=== PATIENT | female | born 1970 | race Caucasian/White ===

== ENCOUNTER 2024-05-12 07:29 | Outpatient (CLI) | payer OTHER, SELFPAY ==
[2024-05-12 08:26] LABS: Basophils Percent Auto 0.4 % (0.2-1.2); Eosinophils Absolute Auto 0.2 K/mm3 (0-0.3); Eosinophils Percent Auto 2.6 % (0-4.4); Hematocrit 45.6 % (37.0-47.0); Hemoglobin 15.6 g/dL (12.0-15.0); Immature Granulocyte Absolute 0.02 K/mm3 (0.00-0.031); Immature Granulocyte Percent A 0.3 % (0-0.5); Lymphocytes Absolute Auto 2.48 K/mm3 (0.9-3.2); Lymphocytes Percent Auto 32.7 % (18.3-44.2); Mean Corpuscular HGB Conc 34.2 g/dl (32-36); Mean Corpuscular Hemoglobin 32.2 pg (26-34); Mean Platelet Volume 10.7 fl (7.4-10.4); Monocytes Absolute Auto 0.6 K/mm3 (0.1-0.6); Neutrophils Absolute Auto 4.3 K/mm3 (1.3-6.7); Platelet Count Result 236 k/mm3 (150-375); Red Blood Count 4.85 M/mm3 (4.2-5.4); Red Cell Distribution Width 12.4 % (11.5-14.5); White Blood Count 7.6 K/mm3 (4.5-10.0)
[2024-05-12 08:39] LABS: Alanine Aminotransferase 26 U/L (6-35); Albumin Level 4.5 g/dL (3.5-5.1); Alkaline Phosphatase 83 U/L (38-126); Anion Gap 8 mmol/L (4-12); Aspartate Amino Transferase 28 U/L (14-36); Bilirubin,Total 0.9 mg/dL (0.2-1.3); Blood Urea Nitrogen 16 mg/dL (7-17); Calcium 8.8 mg/dL (8.4-10.2); Carbon Dioxide 26 mmol/L (22-30); Chloride 103 mmol/L (98-107); Cholesterol 198 mg/dL (0-200); Estimated Glomerular Filt Rate > 60; Glucose 106 mg/dL (65-110); HDL Direct 47 mg/dL; Potassium 4.1 mmol/L (3.4-5.0); Sodium 137 mmol/L (137-145); Triglycerides 103 mg/dL (<150); Uric Acid 6.1 mg/dL (2.5-7.5)
[2024-05-12 08:50] LABS: LDL Cholesterol Direct 118 mg/dL
[2024-05-12 09:03] LABS: Erythrocyte Sedimentation Rate 15 mm/hr (0-20)
[2024-05-12 09:29] LABS: Vitamin D 25 Hydroxy 24.3 ng/mL
[2024-05-12 09:44] LABS: Folic Acid 15.4 ng/mL (2.76->20)
[2024-05-14 14:24] LABS: ANA Cascade Screen NEGATIVE (NEGATIVE)
== END 2024-05-12 07:30 | disposition home or self-care (01) ==
LOC: ANHLAB 07:30
PROVIDERS: PCP Nurse Practitioner Adult Health; Visit Provider Nurse Practitioner Adult Health
DX: E55.9 Vitamin D deficiency, unspecified (principal); Z13.9 Encounter for screening, unspecified; M25.50 Pain in unspecified joint; R20.2 Paresthesia of skin
CPT/HCPCS: 36415; 80053; 80061; 82306; 82607; 82746; 84443; 84550; 85025; 85652; 86038; 86225; 86235; 86364

== ENCOUNTER 2024-06-14 08:00 | Outpatient (RCR) | payer OTHER, SELFPAY ==
--- NOTE | 2024-06-04 11:59 | OPREHPOC ---
Outpatient Therapy Plan of Care This is a Multidisciplinary Plan of Care that may contain components documented by all disciplines (PT, OT, and ST.) PT Problem 1 PT Problem #1 Knowledge Deficit PT Goal 1 Goal 1. Patient will perform independent HEP Target Visit 3 PT Problem 2 PT Problem #2 Pain PT Goal 1 Goal 1. Shoulder pain no higher than 1/10 with work activities Target Visit 8 PT Problem 3 PT Problem #3 Impaired Functional ADLs PT Goal 1 Goal 1. Patient will report no more than 1 instance of incontinence per week 2. Patient will be able to dress independently with limitation from left shoulder Target Visit 8 PT Problem 4 PT Problem #4 Impaired Range of Motion PT Goal 1 Goal 1. Left shoulder flexion at least 140 degrees for reaching tasks Target Visit 8 PT Problem 5 PT Problem #5 Impaired Strength PT Goal 1 Goal 1. Pelvic floor strength to at least 4/5 to decrease incontinence 2. Pelvic floor endurance to 10 seconds to decrease incontinence 3. Left shoulder 4+/5 in all planes for lifting tasks Target Visit 8
--- NOTE | 2024-06-04 12:00 | PTOPEVAL1 ---
Assessment and note entered by Johana Beaulieu DPT Evaluation Information Assessment Status Evaluation ICD-10 Condition Codes (PT) M25.512,Weakness R53.1,Stress incontinence N39.3 Subjective Information Pt reports L shoulder pain that has worsened over the last several months. Highest pain recently 7/ 10 and lowest 2/10. Pain increases with sleeping, lifting her arm to put paper into the scanner at work, dressing (using a twisting frame changer to help put on a bra), doing her hair. Denies n/t in her shoulder ( bilateral hands are). Points to anterolateral shoulder and superior shoulder as location of pain . No imaging so far. Pt is R hand dominant. Patient goal: increase range of motion, be able to lift more Pt also reports urinary incontinence for 6 months, insidious onset. Also feels urgency with voiding especially at night. Will notice wetness throughout the day but did not feel it happen 5 times a day. Small volume when it does occur, typically does not wear pads. Voids 7-8 times a day and 3-4 times a night. Can hold urge to void 5 minutes and feels she is running to the bathroom. Denies pain with urination. BM every 2-3 days. No pain. Denies history of pelvic pain. Pt has been 3 times, all 3 delivery. Partial hysterectomy 5 years ago and they nicked my bladder but said everything turned out fine . Endometrial ablation 5 years ago as well, previous tubal and d and c. No other b/b issues. Patient goal: stop peeing when I cough, sneeze, sit for too long. Reports embarrassment Return to [employer] is not scheduled currently. Reported Pain Level Pain Score Mild Pain: Joaquin Capellan Assessment PT Clinical Summary The patient is presenting to skilled therapy with L shoulder pain and urinary incontinence. She presents with decreased shoulder range of motion in all planes, decreased shoulder and core strength, as well as decreased pelvic floor strength and endurance. These impairments are contributing to her incontinence and her pain/ difficulty with dressing, sleeping, and performing normal work tasks. She will benefit from therapy to address her impairments in order to reduce pain , reduce incontinen
--- NOTE | 2024-06-22 09:56 | PTOPDC ---
Assessment and note entered by Johana Beaulieu DPT Evaluation Information Assessment Status Discharge - Pt Not Present ICD-10 Condition Codes (PT) M25.512,Weakness R53.1,Stress incontinence N39.3 Subjective Information - Assessment PT Clinical Summary Patient is self discharging at this time. Plan of Care PT Services Indicated No
== END 2024-06-22 12:06 | disposition home or self-care (01) ==
LOC: ANHPT 08:00
PROVIDERS: PCP Nurse Practitioner Adult Health; Visit Provider Nurse Practitioner Adult Health
DX: R32 Unspecified urinary incontinence (principal); M25.512 Pain in left shoulder
CPT/HCPCS: 97014; 97110; 97140; 97161; G0283

== ENCOUNTER 2025-04-21 09:08 | Outpatient (CLI) | payer OTHER, SELFPAY ==
--- NOTE | ~2025-04-21 | US_ITS ---
EXAMINATION:US venous doppler LE RT INDICATION:Right leg pain TECHNIQUE: Multiple grayscale, color flow and Doppler images of the right lower extremity deep venous systems were obtained and reviewed. COMPARISON:No prior studies for comparison. FINDINGS: The common femoral, superficial femoral and popliteal veins demonstrate normal respiratory variation, augmentation and compressibility. Color flow is also seen within the posterior tibial, pe roneal, greater saphenous and profunda veins. IMPRESSION: 1: No lower extremity deep venous thrombosis. Reviewed, dictated and finalized at location B.
== END 2025-04-21 09:09 | disposition home or self-care (01) ==
PROVIDERS: PCP Nurse Practitioner Adult Health; Visit Provider Nurse Practitioner Adult Health
DX: M79.661 Pain in right lower leg (principal)
CPT/HCPCS: 93971

== ENCOUNTER 2025-05-20 07:13 | Outpatient (CLI) | payer OTHER, SELFPAY ==
[2025-05-20 08:24] LABS: Hematocrit 48.4 % (37.0-47.0); Hemoglobin 15.6 g/dL (12.0-15.0); Mean Corpuscular HGB Conc 32.2 g/dl (32-36); Mean Corpuscular Hemoglobin 31.2 pg (26-34); Mean Corpuscular Volume 96.8 fl (80-100); Platelet Count Result 233 k/mm3 (150-375); Red Blood Count 5.00 M/mm3 (4.2-5.4); White Blood Count 7.1 K/mm3 (4.5-10.0)
[2025-05-20 08:42] LABS: Alanine Aminotransferase 22 U/L (6-35); Albumin Level 4.0 g/dL (3.5-5.1); Alkaline Phosphatase 75 U/L (38-126); Anion Gap 6 mmol/L (4-12); Aspartate Amino Transferase 30 U/L (14-36); Bilirubin,Total 0.4 mg/dL (0.2-1.3); Blood Urea Nitrogen 12 mg/dL (7-17); Calcium 9.2 mg/dL (8.4-10.2); Carbon Dioxide 29 mmol/L (22-30); Chloride 102 mmol/L (98-107); Cholesterol 190 mg/dL (0-200); Estimated Glomerular Filt Rate > 60; Glucose 98 mg/dL (65-110); HDL Direct 46 mg/dL; Potassium 5.0 mmol/L (3.4-5.0); Sodium 137 mmol/L (137-145); Total Protein 7.8 g/dL (6.3-8.2); Triglycerides 123 mg/dL (<150)
[2025-05-20 09:18] LABS: Thyroid Stimulating Hormone 1.540 uIU/mL (0.465-4.680)
== END 2025-05-20 07:14 | disposition home or self-care (01) ==
LOC: ANHLAB 07:15
PROVIDERS: PCP Nurse Practitioner Adult Health; Visit Provider Nurse Practitioner Adult Health
DX: Z00.00 Encounter for general adult medical examination without abnormal findings (principal); E55.9 Vitamin D deficiency, unspecified
CPT/HCPCS: 36415; 80053; 80061; 82306; 84443; 85027